=== PATIENT | male | born 1985 | race American Indian/Alaskan Native ===

== ENCOUNTER 2019-04-28 12:47 | Emergency (ER) | payer BC ==
[2019-04-28] MEDS ORDERED: ACETAMINOPHEN 500 MG TAB PO ONE (15:30)
--- NOTE | 2019-04-28 15:30 | Event Note ---
ED Screening Note Date of service: 04/28/19 Time: 15:28 ED Screening Note: 34 y/o male comes in for headache and elevated Blood pressure. Takes Catapress, amlodipine 10mg. He reports that he is compliance with all meds. This initial assessment/diagnostic orders/clinical plan/treatment(s) is/are subject to change based on patients health status, clinical progression and re- assessment by fellow clinical providers in the ED. Further treatment and workup at subsequent clinical providers discretion. Patient/guardian urged not to elope from the ED as their condition may be serious if not clinically assessed and managed. Initial orders include:
[2019-04-28] MEDS ORDERED: hydrALAZINE 25 MG TAB PO ONE (15:31)
--- NOTE | 2019-04-28 17:08 | Emergency Department Report ---
ED Headache HPI - General Chief Complaint: Headache Stated Complaint: BP HIGH Time Seen by Provider: 04/28/19 15:27 - History of Present Illness Initial Comments: This is a 34-year-old male with a history of hypertension uncontrolled with medication. Patient is currently taking blood pressure medications and has no relief. Patient states that for the past week his medications does not be working as his blood pressure has been elevated. Patient states since then he is noticed this mild intermittent throbbing headache. Patient did state that he went to a primary care physician yesterday who he is currently working on [employer] his medication. Patient states he has a follow-up appointment in 2 weeks for reevaluation for blood pressure control and change of medication. Pt. denies fever, chills, nausea, vomiting, trauma, vision impairment, Timing/Duration: 24 hours Quality: mild, moderate Head Injury Location: frontal, temporal Recent Head Trauma: frequent headaches Associated Symptoms: denies: confusion, fatigue, nausea/vomiting, nasal congestion, nasal drainage, sinus infection, stiff neck Allergies/Adverse Reactions: Allergies No Known Allergies Allergy (Verified 04/28/19 15:28) Home Medications: Ambulatory Orders Butalb/Acetaminophen/Caffeine [Fioricet 50-300-40 mg CAP] 1 cap PO Q8HR #30 cap 04/28/19 ED Review of Systems ROS: Stated complaint: BP HIGH Other details as noted in HPI Comment: All other systems reviewed and negative ED Past Medical Hx - Past Medical History Hx Hypertension: Yes Hx Kidney Stones: Yes - Surgical History Additional Surgical History: kidney stone removed - Social History Smoking Status: Never Smoker Substance Use Type: None - Medications Home Medications: Home Medications Medication Instructions Recorded Confirmed Last Taken Type Butalb/Acetaminophen/Caffeine 1 cap PO Q8HR #30 cap 04/28/19 Unknown Rx [Fioricet 50-300-40 mg CAP] ED Physical Exam - General Limitations: No Limitations General appearance: alert, in no apparent distress - Head Head exam: Present: atraumatic, normocephalic - Eye Eye exam: Present: normal appearance, PERRL Pupils: Present: normal accommodation - ENT ENT exam: Present: mucous membranes moist - Neck Neck exam: Present: normal inspection - Respiratory Respiratory exam: Present: normal lung sounds bilaterally. Absent: respiratory distress - Cardiovascular Cardiovascular Exam: Present: regular rate, normal rhythm. Absent: systolic murmur, diastolic murmur, rubs, gallop - GI/Abdominal GI/Abdominal exam: Present: soft, normal bowel sounds - Rectal Rectal exam: Present: deferred - Extremities Exam Extremities exam: Present: normal inspection - Back Exam Back exam: Present: normal inspection - Neurological Exam Neurological exam: Present: alert, oriented X3, CN II-XII intact, normal gait - Psychiatric Psychiatric exam: Present: normal affect, normal mood - Skin Skin exam: Present: warm, dry, intact, normal color. Absent: rash ED Course Vital Signs 04/28/19 04/28/19 04/28/19 12:54 15:30 15:34 Temperature 98.1 F Pulse Rate 81 70 Respiratory 16 18 Rate Blood Pressure 160/110 182/107 182/107 O2 Sat by Pulse 98 96 Oximetry 04/28/19 04/28/19 16:34 17:49 Temperature Pulse Rate Respiratory 18 Rate Blood Pressure 186/116 O2 Sat by Pulse Oximetry ED Medical Decision Making - Medical Decision Making 34-year-old female presents to ED with acute headache secondary to elevated blood pressure ED course: Patient received hydralazine and Tylenol in the ED for headache and blood pressure Upon reevaluation after medication. Patient states his headache is resolved. Headache was resolved with Tylenol. Patient is not having any visual disturbances Vital signs are normal patient is in no acute distress Discussed with patient follow-up with primary care physician. Discussed the patient and take medications as prescribed by his primary care doctor and follow-up with the primary care doctor as scheduled. Patient has no neurological deficit. Patient is alert and oriented 3 and understands all instructions given. Critical care attestation.: If time is entered above; I have spent that time in minutes in the direct care of this critically ill patient, excluding procedure time. ED Disposition Clinical Impression: Acute headache, Uncontrolled hypertension Disposition: [id number]-01 TO HOME OR SELFCARE Is pt being admited?: No Does the pt Need Aspirin: No Condition: Stable Instructions: Acute Headache (ED), Hypertension (ED) Additional Instructions: Make sure to follow up with the primary care physician as discussed. Take all your medications as you've been prescribed. If you have any worsening symptoms or develop new symptoms please return to ED immediately. Prescriptions: Butalb/Acetaminophen/Caffeine [Fioricet 50-300-40 mg CAP] 1 cap PO Q8HR #30 cap Referrals: PRIMARY CARE, [Primary Care Provider] - 3-5 Days Forms: Work/School Release Form(ED) Time of Disposition: 17:09
[2019-04-28 17:54] VITALS: BP 186/116
== END 2019-04-28 17:54 | disposition home or self-care (01) ==
LOC: ED 12:47
DX: I10 Essential (primary) hypertension (principal); R51 Headache; Z87.442 Personal history of urinary calculi; Z79.899 Other long term (current) drug therapy
CPT/HCPCS: 99282